=== PATIENT | male | born 1965 | race American Indian/Alaskan Native ===

== ENCOUNTER 2020-04-22 12:58 | Emergency (ER) | payer OTHER ==
[2020-04-22] MEDS ORDERED: diphenhydrAMINE 50 MG/ML VIAL IV ONE (13:37)
[2020-04-22] MEDS ORDERED: methylPREDNISolone Sod Succinate 125 MG/2 ML INJ IV ONE (13:37)
[2020-04-22] MEDS ORDERED: FAMOTIDINE 20 MG/2 ML INJ IV ONE (13:37)
--- NOTE | 2020-04-22 13:38 | Emergency Department Report ---
HPI - HPI HPI: 54-year-old male with a past medical history of hypertension and sleep apnea currently on CPAP, CAD with stent presents to the hospital complains of swelling to neck and face with mild trouble swallowing x1 week. Symptoms have been fairly stable for the past week. He was not concerned until his family members also noticed a swelling. He does complain of some mild changes in the sound of his voice and feel like his tongue is swollen, face, and throat. Patient reports he has similar symptoms here in October 2014. Medical record reviewed. At that time patient had angioedema due to lisinopril (allergy list updated in [facility]). Patient denies wheezing, rash, pruritus, dental pain, or fever Patient's current meds include amlodipine, metoprolol, and atorvastatin. Denies any new medications or exposures to soaps lotions. Patient been noncompliant with his aspirin x1 week <DIANNE MCKEON - Last Filed: 04/22/20 14:01> <VLADISLAV MCMULLEN III - Last Filed: 04/22/20 19:54> - General Chief Complaint: Allergic Reaction Time Seen by Provider: 04/22/20 13:37 ED Past Medical Hx - Past Medical History Previous Medical History?: Yes Hx Hypertension: Yes Hx Heart Attack/AMI: Yes (2009) Additional medical history: GI bleed - Surgical History Past Surgical History?: Yes Hx Coronary Stent: Yes (2009) - Social History Smoking Status: Never Smoker Substance Use Type: None <DIANNE MCKEON - Last Filed: 04/22/20 14:01> <VLADISLAV MCMULLEN III - Last Filed: 04/22/20 19:54> - Medications Home Medications: Home Medications Medication Instructions Recorded Confirmed Last Taken Type predniSONE [Deltasone] 50 mg PO QDAY #5 tab 11/07/14 Unknown Rx methylPREDNISolone [Medrol 4MG 4 mg PO DAILY 6 Days #1 tab.ds.pk 04/22/20 Unknown Rx DOSEPAK (21 tabs)] ED Review of Systems ROS: Stated complaint: HEATHER/ALLERGIC REACTION Other details as noted in HPI Comment: All other systems reviewed and negative Other: General: No acute distress Head: Atraumatic generalized swelling to face Eyes: normal appearance ENT: Moist mucous membranes, no posterior pharyngeal swelling, mild tongue swelling, floor of mouth soft Neck: Normal appearance, no midline tenderness, swelling to anterior neck and submental area Chest: Clear to auscultation bilaterally CV: Regular rate and rhythm Abdomen: Soft, normal bowel sounds, nontender, nondistended, no rebound or guarding Back: Normal inspection Extremity: Normal inspection, full range of motion Neuro: Alert O x 3, no facial asymmetry, speech clear, no gross motor sensory deficit Psych: Appropriate behavior Skin: No rash <DIANNE MCKEON - Last Filed: 04/22/20 14:01> ROS: Stated complaint: HEATHER/ALLERGIC REACTION Other details as noted in HPI <VLADISLAV MCMULLEN III - Last Filed: 04/22/20 19:54> Physical Exam - Physical Exam Vital Signs: Vital Signs 04/22/20 13:12 Temperature 98.3 F Pulse Rate 95 H Respiratory 18 Rate Blood Pressure 151/83 [Right] O2 Sat by Pulse 100 Oximetry <DIANNE MCKEON - Last Filed: 04/22/20 14:01> - Physical Exam Vital Signs: Vital Signs 04/22/20 04/22/20 13:12 14:55 Temperature 98.3 F Pulse Rate 95 H 78 Respiratory 18 18 Rate Blood Pressure 151/83 148/93 [Right] O2 Sat by Pulse 100 98 Oximetry <VLADISLAV MCMULLEN III - Last Filed: 04/22/20 19:54> ED Course Vital Signs 04/22/20 13:12 Temperature 98.3 F Pulse Rate 95 H Respiratory 18 Rate Blood Pressure 151/83 [Right] O2 Sat by Pulse 100 Oximetry <DIANNE MCKEON - Last Filed: 04/22/20 14:01> Vital Signs 04/22/20 04/22/20 13:12 14:55 Temperature 98.3 F Pulse Rate 95 H 78 Respiratory 18 18 Rate Blood Pressure 151/83 148/93 [Right] O2 Sat by Pulse 100 98 Oximetry - Reevaluation(s) Reevaluation #1: Patient signed out to me from previous physician. Patient is in need monitoring and reassessment. Patient states he is feeling better. Patient states he still have not some difficulties breathing and fullness feeling in his neck and jawline. 04/22/20 16:05 Reevaluation #2: Patient states that he is feeling a little bit better however the patient still has a predominant lump at the submental region of his jawline. Patient states the lump has some tenderness to it. Patient's lung sounds are clear. No stridor noted. Tenderness noted within the submental soft tissue region. A rather large lump noted. 04/22/20 17:35 Reevaluation #3: Patient states tired waiting for a CT scan. Patient states he is feeling better. Patient states he is ready to go. I discussed the risk of leaving the hospital AGAINST MEDICAL ADVICE and not waiting on him. Patient was understanding of the risk. Patient signed AMA form. Patient is going to leave the hospital AGAINST MEDICAL ADVICE but a discharge date will be rendered to the patient. Patient given discharge directions. Patient voiced understanding of discharge instructions. Patient will be given a steroid Dosepak for the allergic reaction. 04/22/20 19:50 <VLADISLAV MCMULLEN III - Last Filed: 04/22/20 19:54> ED Medical Decision Making - Lab Data Result diagrams: 04/22/20 13:18 04/22/20 13:18 <VLADISLAV MCMULLEN III - Last Filed: 04/22/20 19:54> Critical Care Time: No Critical care attestation.: If time is entered above; I have spent that time in minutes in the direct care of this critically ill patient, excluding procedure time. <DIANNE MCKEON - Last Filed: 04/22/20 14:01> Critical care attestation.: If time is entered above; I have spent that time in minutes in the direct care of this critically ill patient, excluding procedure time. <VLADISLAV MCMULLEN III - Last Filed: 04/22/20 19:54> ED Disposition <DIANNE MCKEON - Last Filed: 04/22/20 14:01> Is pt being admited?: No Does the pt Need Aspirin: No Time of Disposition: 19:53 <VLADISLAV MCMULLEN III - Last Filed: 04/22/20 19:54> Clinical Impression: Facial swelling, Difficulty breathing, Neck mass, Submental mass Allergic reaction Qualifiers: Encounter type: initial encounter Qualified Code(s): T78.40XA - Allergy, unspecified, initial encounter Disposition: DC-07 LEFT AGAINST MED ADVICE Condition: Stable Instructions: Allergies, Adult, [id number] Additional Instructions: Patient to follow-up with primary care in 2 to 3 days. Patient to follow-up with ENT and [employer] school guidance counselor in 2 to 3 days. Patient to rest. Patient to increase water. Patient to avoid strenuous exercise or heavy lifting until cleared by primary care and ENT.. Patient to take Tylenol or ibuprofen as needed for pain. Patient to take meds as directed. Patient to return to the ER if condition worsens, changes or new symptoms arise. Prescriptions: methylPREDNISolone [Medrol 4MG DOSEPAK (21 tabs)] 4 mg PO DAILY 6 Days #1 tab.ds.pk Referrals: PRIMARY CARE, [Primary Care Provider] - 2-3 Days Forms: AMA Form
[2020-04-22 14:47] LABS: Basophils # (Auto) 0.1 K/mm3 (0.0-0.1); Basophils % (Auto) 1.8 % (0.0-1.8); Eosinophils # (Auto) 0.2 K/mm3 (0.0-0.4); Eosinophils % (Auto) 2.4 % (0.0-4.3); Hematocrit 38.8 % (35.5-45.6); Hemoglobin 12.8 gm/dl (11.8-15.2); Lymphocytes % (Auto) 28.9 % (13.4-35.0); Mean Corpuscular HGB Conc 33 % (32-34); Mean Corpuscular Volume 81 fl (84-94); Monocytes # (Auto) 0.5 K/mm3 (0.0-0.8); Monocytes % (Auto) 7.7 % (0.0-7.3); Platelet Count 273 K/mm3 (140-440); Red Cell Distribution Width 16.5 % (13.2-15.2)
[2020-04-22 15:04] LABS: Alanine Aminotransferase 17 units/L (7-56); Albumin 4.3 g/dL (3.9-5); BUN/Creatinine Ratio 12; Blood Urea Nitrogen 11 mg/dL (9-20); Calcium 9.9 mg/dL (8.4-10.2); Hemolysis Index 5
[2020-04-23 00:10] VITALS: BP 153/96
== END 2020-04-22 20:12 | disposition left against medical advice (07) ==
LOC: ED 12:58
DX: T78.40XA Allergy, unspecified, initial encounter (principal); R22.0 Localized swelling, mass and lump, head; R06.00 Dyspnea, unspecified; R22.1 Localized swelling, mass and lump, neck; I25.2 Old myocardial infarction; I10 Essential (primary) hypertension; Z98.890 Other specified postprocedural states; Z79.899 Other long term (current) drug therapy; Z88.8 Allergy status to other drugs, medicaments and biological substances; X58.XXXA Exposure to other specified factors, initial encounter
CPT/HCPCS: 36415; 80053; 85025; 96374; 96375; 99283; J1200; J2930